=== PATIENT | female | born 1960 | race American Indian/Alaskan Native ===

== ENCOUNTER 2018-06-26 12:08 | Inpatient (IN) | payer SELFPAY ==
--- NOTE | 2018-06-26 13:30 | Emergency Department Report ---
ED General Adult HPI - General Chief complaint: Weakness Stated complaint: WEAKNESS/DEHYRDATION Time Seen by Provider: 06/26/18 12:48 Source: patient, EMS (ems notes not available at time of chart dictation), RN notes reviewed Limitations: Physical Limitation, Other (patient is a poor historian.) - History of Present Illness Initial comments: This is a 58-year-old female who is not known to this provider previously. Her past medical history includes stroke, residual dysarthria. Patient may also be undomiciled. The patient was brought to the hospital by EMS. As per verbal report from the patient's nurse, the patient was found on somebody's front porch sitting down. Apparently the resident of the porch called 911. Patient indicated that she was walking home but got lost. She indicates that she feels globally weak. She indicates that she thinks that she is going to have another stroke. She feels like this because she has chronic lower extremity weakness and global weakness. However it is not new, worsened or different. She reports that she's been doing a lot of walking recently. -: This afternoon Consistency: constant Improves with: none Worsens with: none Associated Symptoms: confusion, headaches, loss of appetite, malaise, weakness. denies: chest pain, cough, diaphoresis, fever/chills - Related Data Previous Rx's Medication Instructions Recorded Last Taken Type Amlodipine Besylate [Norvasc] 5 mg PO QDAY #30 tablet 06/26/18 Unknown Rx Aspirin [Aspirin BABY CHEW TAB] 81 mg PO QDAY #30 tab.chew 06/26/18 Unknown Rx Magnesium Oxide [Mag-Ox] 400 mg PO QDAY #15 tablet 06/26/18 Unknown Rx Allergies Allergy/AdvReac Type Severity Reaction Status Date / Time No Known Allergies Allergy Verified 06/26/18 13:38 ED Review of Systems ROS: Stated complaint: WEAKNESS/DEHYRDATION Other details as noted in HPI Constitutional: malaise Eyes: denies: eye discharge ENT: denies: epistaxis Respiratory: cough Cardiovascular: denies: chest pain Gastrointestinal: denies: vomiting Genitourinary: denies: dysuria Musculoskeletal: arthralgia Skin: denies: lesions Neurological: weakness Psychiatric: anxiety ED Past Medical Hx - Medications Home Medications: Home Medications Medication Instructions Recorded Confirmed Last Taken Type Amlodipine Besylate [Norvasc] 5 mg PO QDAY #30 tablet 06/26/18 Unknown Rx Aspirin [Aspirin BABY CHEW TAB] 81 mg PO QDAY #30 tab.chew 06/26/18 Unknown Rx Magnesium Oxide [Mag-Ox] 400 mg PO QDAY #15 tablet 06/26/18 Unknown Rx ED Physical Exam - General Limitations: Other (patient is chronically dysarthric) General appearance: alert, in no apparent distress - Head Head exam: Present: atraumatic, normocephalic - Eye Eye exam: Present: normal appearance, EOMI - ENT ENT exam: Present: mucous membranes moist. Absent: normal exam (poor dentition) - Neck Neck exam: Present: normal inspection, full ROM. Absent: tenderness, meningismus - Respiratory Respiratory exam: Present: normal lung sounds bilaterally. Absent: respiratory distress - Cardiovascular Cardiovascular Exam: Present: regular rate, normal rhythm, normal heart sounds. Absent: bradycardia, tachycardia, irregular rhythm, systolic murmur, diastolic murmur, rubs, gallop - GI/Abdominal GI/Abdominal exam: Present: soft, normal bowel sounds. Absent: distended, tenderness, guarding, rebound, rigid, pulsatile mass - Extremities Exam Extremities exam: Present: normal inspection, full ROM, normal capillary refill , other (2+ pulses noted in the bilateral upper, lower extremities. Compartments soft. No long bony tenderness. The pelvis is stable.). Absent: pedal edema, joint swelling, calf tenderness - Back Exam Back exam: Present: normal inspection, full ROM. Absent: tenderness, CVA tenderness (R), paraspinal tenderness, vertebral tenderness - Neurological Exam Neurological exam: Present: alert, oriented X3, normal gait (patient walks with a broad-based gait and 1 person assist), other (Extraocular movements intact. Tongue midline. No facial droop. Facial sensation intact to light touch in the V1, V2, V3 distribution bilaterally. 5 and 5 strength in 4 extremities.. Sensation is intact to light touch in 4 extremities.). Absent: motor sensory deficit - Psychiatric Psychiatric exam: Present: anxious - Skin Skin exam: Present: warm, dry, intact, normal color. Absent: rash ED Course Vital Signs 06/26/18 06/26/18 06/26/18 12:10 13:38 15:15 Temperature 98.4 F Pulse Rate 72 75 70 Respiratory 18 18 18 Rate Blood Pressure 197/94 Blood Pressure 183/82 185/98 [Left] O2 Sat by Pulse 99 99 99 Oximetry 06/26/18 06/26/18 06/26/18 17:00 18:30 19:30 Temperature 98.2 F 97.8 F 97.8 F Pulse Rate 66 74 88 Respiratory 20 16 18 Rate Blood Pressure Blood Pressure 179/94 169/88 168/82 [Left] O2 Sat by Pulse 99 99 99 Oximetry 06/26/18 06/27/18 06/27/18 22:30 00:16 01:01 Temperature Pulse Rate Respiratory Rate Blood Pressure 188/96 185/88 Blood Pressure [Left] O2 Sat by Pulse 98 99 100 Oximetry 06/27/18 06/27/18 06/27/18 01:46 02:00 02:16 Temperature Pulse Rate Respiratory Rate Blood Pressure 165/103 165/103 158/87 Blood Pressure [Left] O2 Sat by Pulse 100 100 99 Oximetry 06/27/18 06/27/18 06/27/18 02:43 02:45 03:00 Temperature Pulse Rate Respiratory Rate Blood Pressure 165/103 193/100 Blood Pressure [Left] O2 Sat by Pulse 99 99 99 Oximetry 06/27/18 06/27/18 06/27/18 03:15 03:31 03:45 Temperature Pulse Rate Respiratory Rate Blood Pressure 193/100 195/92 195/92 Blood Pressure [Left] O2 Sat by Pulse 99 98 99 Oximetry 06/27/18 06/27/18 06/27/18 04:01 04:15 04:31 Temperature Pulse Rate Respiratory Rate Blood Pressure 193/100 188/100 188/100 Blood Pressure [Left] O2 Sat by Pulse 97 97 100 Oximetry 06/27/18 06/27/18 06/27/18 04:45 05:01 05:15 Temperature Pulse Rate Respiratory Rate Blood Pressure 188/100 185/99 185/99 Blood Pressure [Left] O2 Sat by Pulse 99 97 99 Oximetry 06/27/18 06/27/18 06/27/18 05:31 05:42 05:45 Temperature Pulse Rate 75 Respiratory Rate Blood Pressure 185/99 185/99 188/100 Blood Pressure [Left] O2 Sat by Pulse 99 100 Oximetry 06/27/18 06/27/18 06/27/18 06:01 06:15 07:01 Temperature Pulse Rate Respiratory Rate Blood Pressure 188/100 188/100 117/74 Blood Pressure [Left] O2 Sat by Pulse 100 99 98 Oximetry 06/27/18 10:40 Temperature Pulse Rate 55 L Respiratory Rate Blood Pressure 117/74 Blood Pressure [Left] O2 Sat by Pulse Oximetry - Reevaluation(s) Reevaluation #1: 06/26/18 14:14 Differential diagnosis, including but not limited to: Homelessness, dehydration , urinary tract infection, electrolyte derangement Assessment and plan: 58-year-old female who was brought to the hospital by EMS after the flatbed owner operator of the house where she was squatting/sitting presumably called 911. The patient is a very poor historian. The patient arrived with multiple bags of belongings, multiple layered T-shirts and was covered in feces. She is most likely undomiciled. Based on her history and physical, she does not endorse an acute complaint that seems to be consistent with an acute medical emergency. Noncontrast CT scan of the brain shows chronic findings. Laboratory studies, urinalysis, EKG pending. Case management consult has been obtained to assist with placement. Reevaluation #2: 06/26/18 15:28 The patient ate a full meal tray without difficulty. The patient was evaluated by case management/elementary school social worker. They have given the patient outpatient information for local prison services, the patient will be provided with transportation to the local shelters. The patient's elevated blood pressure is appreciated. Please reference the [employer] clinical policy on hypertension that is not symptomatic. There does not appear to be an acute medical emergency at this time which requires inpatient hospitalization. Reevaluation #3: 06/26/18 15:36 Blood pressure is in the 180s. The patient states she has no urinary symptoms. The patient will be discharged to follow-up. Reevaluation #4: 06/27/18 15:12 The patient has been in the ER for almost 24 hours. She has not been able to receive placement secondary to her chronic unsteady gait. The case has been discussed with the director of hospital medicine, Dr. Josh Berry, who has authorized the patient to be admitted for placement and safe disposition. The case was presented to the Hospital physician, Dr. Josh Johansen, who has graciously accepted the patient to his medical service. ED Medical Decision Making - Lab Data Result diagrams: 06/26/18 13:51 06/26/18 13:51 Vital Signs 06/26/18 12:10 Temperature 98.4 F Pulse Rate 72 Respiratory 18 Rate Blood Pressure 197/94 O2 Sat by Pulse 99 Oximetry Lab Results 06/26/18 Range/Units 13:51 [place] % (Auto) 7.4 H (0.0-7.3) % Eos % (Auto) 0.1 (0.0-4.3) % [place] # 0.4 (0.0-0.8) K/mm3 Eos # 0.0 (0.0-0.4) K/mm3 Baso # 0.0 (0.0-0.1) K/mm3 Seg Neutrophils % 63.8 (40.0-70.0) % Seg Neutrophils # 3.4 (1.8-7.7) K/mm3 - EKG Data -: EKG Interpreted by [facility] EKG shows normal: sinus rhythm - EKG Data When compared to previous EKG there are: previous EKG unavailable 06/26/18 15:09 Normal sinus, 70 bpm, normal axis, QTC prolonged, T-wave inversion V4, left ventricular hypertrophy. Not a STEMI. - Radiology Data Radiology results: report reviewed Referring Physician: ROSE NUNO Patient Name: RAISSA SUH Date of : 1960 Sex: Female Report Date: 2018-06-26 Report Status: Finalized Findings [facility] [address] [place] [address] Cat Scan Report Signed Patient: RAISSA SUH MR#: [id number] : 1960 Acct:[id number] Age/Sex: 58 / F ADM Date: 06/26/18 Loc: ED Attending Dr: Ordering Physician: ROSE NUNO MD Date of Service: 06/26/18 Procedure(s): CT head/brain wo con Accession Number(s): [id number] cc: ROSE NUNO MD CT HEAD WITHOUT CONTRAST: HISTORY: Stroke symptoms. TECHNIQUE: Sequential 2.5mm CT images. COMPARISON: none. FINDINGS: No comparison. Right frontotemporal craniotomy changes are identified, correlate with surgical history. There are moderate to large areas of cortical encephalomalacia in the medial right frontal lobe, left frontal lobe and anterior left temporal lobe. This may be secondary to trauma. Minimal nonspecific chronic white matter changes are identified. Chronic subcentimeter infarcts are identified in the right king radiata and bilateral basal ganglia. There is no evidence for hemorrhage, mass or large area of acute ischemia on noncontrast CT. Ventricular size is within normal limits. The calvarium, sinuses and mastoid air cells are unremarkable. IMPRESSION: No acute intracranial process is identified. Chronic findings outlined above. Transcribed By: TTR Dictated By: GREG MAGANA JR, MD Electronically Authenticated By: GREG MAGANA JR, MD Signed Date/Time: 06/26/18 1400 Critical care attestation.: If time is entered above; I have spent that time in minutes in the direct care of this critically ill patient, excluding procedure time. ED Disposition Clinical Impression: Elevated blood pressure reading, Renal insufficiency Disposition: OP ADMIT IP TO THIS HOSP Is pt being admited?: Yes Does the pt Need Aspirin: Yes Condition: Stable Instructions: Hypertension (ED) Additional Instructions: Take the medications as directed. Please note that laboratory studies indicated renal insufficiency and elevated blood pressure. Patient's potassium was also lower than expected. Take the medications as directed, and follow-up with the primary care doctor or kidney doctor within the next month. Long-term complications of hypertension and elevated blood pressure includes stroke, heart attack, disability, paralysis, loss of quality of life. Return to the ER right away with new pain, worsened pain, migration of pain, fevers, chills, lethargy, irritability, productive vomiting, change in mental status, confusion , inability to tolerate liquid feeds. Prescriptions: Amlodipine Besylate [Norvasc] 5 mg PO QDAY #30 tablet Aspirin [Aspirin BABY CHEW TAB] 81 mg PO QDAY #30 tab.chew Magnesium Oxide [Mag-Ox] 400 mg PO QDAY #15 tablet Referrals: [facility] [Provider Group] - 3-5 Days CHARLI MYLES MD [Staff Physician] - 3-5 Days
--- NOTE | 2018-06-26 14:06 | Cat Scan Report ---
CT HEAD WITHOUT CONTRAST: HISTORY: Stroke symptoms. TECHNIQUE: Sequential 2.5mm CT images. COMPARISON: none. FINDINGS: No comparison. Right frontotemporal craniotomy changes are identified, correlate with surgical history. There are moderate to large areas of cortical encephalomalacia in the medial right frontal lobe, left frontal lobe and anterior left temporal lobe. This may be secondary to trauma. Minimal nonspecific chronic white matter changes are identified. Chronic subcentimeter infarcts are identified in the right king radiata and bilateral basal ganglia. There is no evidence for hemorrhage, mass or large area of acute ischemia on noncontrast CT. Ventricular size is within normal limits. The calvarium, sinuses and mastoid air cells are unremarkable. IMPRESSION: No acute intracranial process is identified. Chronic findings outlined above.
[2018-06-26 14:14] LABS: Basophils % (Auto) 0.3 % (0.0-1.8); Eosinophils % (Auto) 0.1 % (0.0-4.3); Hematocrit 38.6 % (30.3-42.9); Hemoglobin 12.9 gm/dl (10.1-14.3); Lymphocytes # (Auto) 1.5 K/mm3 (1.2-5.4); Lymphocytes % (Auto) 28.4 % (13.4-35.0); Mean Corpuscular HGB Conc 33 % (30-34); Mean Corpuscular Hemoglobin 30 pg (28-32); Mean Corpuscular Volume 88 fl (79-97); Monocytes # (Auto) 0.4 K/mm3 (0.0-0.8); Monocytes % (Auto) 7.4 % (0.0-7.3); Platelet Count 146 K/mm3 (140-440); Red Blood Count 4.37 M/mm3 (3.65-5.03); Red Cell Distribution Width 14.4 % (13.2-15.2)
[2018-06-26] MEDS ORDERED: ZOFRAN ODT PO PRN (14:16)
[2018-06-26] MEDS ORDERED: TYLENOL PO PRN (14:16)
[2018-06-26 14:23] LABS: INR 0.88 (0.87-1.13)
[2018-06-26 14:24] LABS: Partial Thromboplastin Time 27.7 Sec. (24.2-36.6)
[2018-06-26 14:26] LABS: Creatine Kinase MB 1.5 ng/mL (0.0-4.0)
[2018-06-26 14:27] LABS: Alanine Aminotransferase 7 units/L (7-56); Albumin 3.9 g/dL (3.9-5); BUN/Creatinine Ratio 14; Blood Urea Nitrogen 20 mg/dL (7-17); Calcium 9.2 mg/dL (8.4-10.2); Hemolysis Index 25
[2018-06-26] MEDS ORDERED: MAG-OX PO STA (14:56)
[2018-06-26] MEDS: NORVASC PO SCH (15:50)
[2018-06-27] MEDS ORDERED: CATAPRES PO ONE (05:35)
[2018-06-27] MEDS: NORVASC PO SCH (10:40)
[2018-06-27] MEDS ORDERED: BABY ASPIRIN PO ONE (15:13)
--- NOTE | 2018-06-27 18:10 | History and Physical Report ---
History of Present Illness Date of examination: 06/27/18 Date of admission: 06/27/18 Chief complaint: CC Unable to walk and ataxic History of present illness: History of Present Illness: 58-year-old female with history of previous stroke and dysarthria with unsteady gait brought to the hospital by EMS. Patient was apparently found on somebody' s front porch and sitting posture--disheveled and covered with feces. Patient was apparently walking home and got lost. Feels very weak and unable to walk. Patient has chronic lower extremity weakness and has difficulty walking. No recent changes in her weakness. Patient has chronic problems with strength in the lower extremities. Patient is also homeless and wants help. Discussed with and accepted the patient for admission and placement. No new weaknesses. No nasal regurgitation of fluids or diplopia or urinary incontinence. No shortness of breath. Past Medical Hx Htn Cva Surgical Hx N/A Family Hx Htn Social History Smokes PPD Medications Home Medications: Home Medications Medication Instructions Recorded Confirmed Last Taken Type Amlodipine Besylate [Norvasc] 5 mg PO QDAY #30 tablet 06/26/18 Unknown Rx Aspirin [Aspirin BABY CHEW TAB] 81 mg PO QDAY #30 tab.chew 06/26/18 Unknown Rx Magnesium Oxide [Mag-Ox] 400 mg PO QDAY #15 tablet 06/26/18 Unknown Rx Review of systems ROS: Stated complaint: WEAKNESS/DEHYRDATION Other details as noted in HPI Constitutional: malaise Eyes: denies: eye discharge ENT: denies: epistaxis Respiratory: cough Cardiovascular: denies: chest pain Gastrointestinal: denies: vomiting Genitourinary: denies: dysuria Musculoskeletal: arthralgia Skin: denies: lesions Neurological: weakness Psychiatric: anxiety Medications and Allergies Allergies Allergy/AdvReac Type Severity Reaction Status Date / Time No Known Allergies Allergy Verified 06/26/18 13:38 Home Medications Medication Instructions Recorded Confirmed Last Taken Type Amlodipine Besylate [Norvasc] 5 mg PO QDAY #30 tablet 06/26/18 Unknown Rx Aspirin [Aspirin BABY CHEW TAB] 81 mg PO QDAY #30 tab.chew 06/26/18 Unknown Rx Magnesium Oxide [Mag-Ox] 400 mg PO QDAY #15 tablet 06/26/18 Unknown Rx Active Meds: Active Medications Acetaminophen (Tylenol) 500 mg PO Q6HR PRN PRN Reason: Pain Last Admin: 06/26/18 15:50 Dose: 500 mg Amlodipine Besylate (Norvasc) 5 mg PO QDAY RACHEL Last Admin: 06/27/18 10:40 Dose: 5 mg Ondansetron HCl (Zofran Odt) 4 mg PO Q6HR PRN PRN Reason: Nausea Exam - Constitutional Vitals: Temp Pulse Resp BP Pulse Ox 97.8 F 80 18 124/76 98 06/26/18 19:30 06/27/18 17:00 06/26/18 19:30 06/27/18 17:00 06/27/18 07:01 General appearance: Present: no acute distress, well-nourished - EENT Eyes: Present: PERRL ENT: hearing intact, clear oral mucosa - Neck Neck: Present: supple, normal ROM - Respiratory Respiratory effort: normal Respiratory: bilateral: CTA - Cardiovascular Heart rate: 80 Rhythm: regular Heart Sounds: Present: S1 & S2. Absent: rub, click - Extremities Extremities: no ischemia, pulses intact, pulses symmetrical, No edema Peripheral Pulses: within normal limits - Abdominal General gastrointestinal: Present: soft, non-tender, non-distended, normal bowel sounds Female genitourinary: Present: normal - Rectal Rectal Exam: deferred - Integumentary Integumentary: Present: clear, warm, dry - Musculoskeletal Musculoskeletal: generalized weakness, other (Ataxic Gait) - Psychiatric Psychiatric: appropriate mood/affect, intact judgment & insight, depressed - Neurologic Neurologic: CNII-XII intact, moves all extremities (Powern 4/5 in both lower extremities) Results - Labs CBC & Chem 7: 06/26/18 13:51 06/26/18 13:51 Labs: Laboratory Last Values WBC 5.3 K/mm3 (4.5-11.0) 06/26/18 13:51 RBC 4.37 M/mm3 (3.65-5.03) 06/26/18 13:51 Hgb 12.9 gm/dl (10.1-14.3) 06/26/18 13:51 Hct 38.6 % (30.3-42.9) 06/26/18 13:51 MCV 88 fl (79-97) 06/26/18 13:51 MCH 30 pg (28-32) 06/26/18 13:51 MCHC 33 % (30-34) 06/26/18 13:51 RDW 14.4 % (13.2-15.2) 06/26/18 13:51 Plt Count 146 K/mm3 (140-440) 06/26/18 13:51 Lymph % (Auto) 28.4 % (13.4-35.0) 06/26/18 13:51 [place] % (Auto) 7.4 % (0.0-7.3) H 06/26/18 13:51 Eos % (Auto) 0.1 % (0.0-4.3) 06/26/18 13:51 Baso % (Auto) 0.3 % (0.0-1.8) 06/26/18 13:51 Lymph # 1.5 K/mm3 (1.2-5.4) 06/26/18 13:51 [place] # 0.4 K/mm3 (0.0-0.8) 06/26/18 13:51 Eos # 0.0 K/mm3 (0.0-0.4) 06/26/18 13:51 Baso # 0.0 K/mm3 (0.0-0.1) 06/26/18 13:51 Seg Neutrophils % 63.8 % (40.0-70.0) 06/26/18 13:51 Seg Neutrophils # 3.4 K/mm3 (1.8-7.7) 06/26/18 13:51 PT 12.4 Sec. (12.2-14.9) 06/26/18 13:51 INR 0.88 (0.87-1.13) 06/26/18 13:51 APTT 27.7 Sec. (24.2-36.6) 06/26/18 13:51 Thrombin Time 15.0 Sec. (15.1-19.6) L 06/26/18 13:51 Sodium 140 mmol/L (137-145) 06/26/18 13:51 Potassium 3.9 mmol/L (3.6-5.0) 06/26/18 13:51 Chloride 102.3 mmol/L (98-107) 06/26/18 13:51 Carbon Dioxide 22 mmol/L (22-30) 06/26/18 13:51 Anion Gap 20 mmol/L 06/26/18 13:51 BUN 20 mg/dL (7-17) H 06/26/18 13:51 Creatinine 1.4 mg/dL (0.7-1.2) H 06/26/18 13:51 Estimated GFR 39 ml/min 06/26/18 13:51 BUN/Creatinine Ratio 14 % 06/26/18 13:51 Glucose 101 mg/dL (65-100) H 06/26/18 13:51 POC Glucose 94 (70-105) 06/27/18 03:27 Calcium 9.2 mg/dL (8.4-10.2) 06/26/18 13:51 Magnesium 1.60 mg/dL (1.7-2.3) L 06/26/18 13:51 Total Bilirubin 0.40 mg/dL (0.1-1.2) 06/26/18 13:51 AST 14 units/L (5-40) 06/26/18 13:51 ALT 7 units/L (7-56) 06/26/18 13:51 Alkaline Phosphatase 79 units/L (35-129) 06/26/18 13:51 Total Creatine Kinase 124 units/L (30-135) 06/26/18 13:51 CK-MB (CK-2) 1.5 ng/mL (0.0-4.0) 06/26/18 13:51 CK-MB (CK-2) Rel Index 1.2 (0-4) 06/26/18 13:51 Troponin T < 0.010 ng/mL (0.00-0.029) 06/26/18 13:51 Total Protein 7.4 g/dL (6.3-8.2) 06/26/18 13:51 Albumin 3.9 g/dL (3.9-5) 06/26/18 13:51 Albumin/Globulin Ratio 1.1 % 06/26/18 13:51 TSH 1.980 mlU/mL (0.270-4.200) 06/26/18 13:51 Salicylates < 0.3 mg/dL (2.8-20.0) L 06/26/18 13:51 Acetaminophen < 5.0 ug/mL (10.0-30.0) L 06/26/18 13:51 Plasma/Serum Alcohol < 0.01 % (0-0.07) 06/26/18 13:51 - Imaging and Cardiology Imaging and Cardiology: CT Head IMPRESSION: No acute intracranial process is identified. Chronic findings outlined above. Assessment and Plan Advance Directives: Yes (Full code) VTE prophylaxis?: Chemical Plan of care discussed with patient/family: Yes - Patient Problems (1) MORRO (acute kidney injury) Current Visit: Yes Status: Acute Plan to address problem: IV Fluids (2) Ataxia Current Visit: Yes Status: Chronic Plan to address problem: MRI/MRA MRI LS Spine PT consult Neuro consult Placement (3) HTN (hypertension) Current Visit: Yes Status: Chronic Qualifiers: Hypertension type: essential hypertension Qualified Code(s): I10 - Essential (primary) hypertension Plan to address problem: Cont Antihypertensives (4) Hypomagnesemia Current Visit: Yes Status: Acute Plan to address problem: IV Magnesium (5) DVT prophylaxis Current Visit: Yes Status: Acute Plan to address problem: On Lovenox
[2018-06-27] MEDS ORDERED: TYLENOL PO PRN (18:12)
[2018-06-27] MEDS ORDERED: ZOFRAN IV PRN (18:12)
[2018-06-27] MEDS ORDERED: SODIUM CHLORIDE FLUSH SYRINGE 10 ML IV PRN (18:12)
[2018-06-27] MEDS ORDERED: MORPHINE IV PRN (18:12)
[2018-06-27] MEDS ORDERED: BABY ASPIRIN ONE (19:26)
[2018-06-27] MEDS: D5NS 1,000 ML IV SCH (23:36)
[2018-06-27] MEDS: SODIUM CHLORIDE FLUSH SYRINGE 10 ML IV SCH (23:38)
[2018-06-28 07:57] LABS: Basophils % (Auto) 0.4 % (0.0-1.8); Eosinophils % (Auto) 0.1 % (0.0-4.3); Hemoglobin 12.3 gm/dl (10.1-14.3); Lymphocytes # (Auto) 1.3 K/mm3 (1.2-5.4); Lymphocytes % (Auto) 41.1 % (13.4-35.0); Mean Corpuscular HGB Conc 33 % (30-34); Mean Corpuscular Hemoglobin 30 pg (28-32); Mean Corpuscular Volume 89 fl (79-97); Monocytes # (Auto) 0.3 K/mm3 (0.0-0.8); Monocytes % (Auto) 10.8 % (0.0-7.3); Platelet Count 154 K/mm3 (140-440); Red Blood Count 4.17 M/mm3 (3.65-5.03); Red Cell Distribution Width 14.5 % (13.2-15.2)
[2018-06-28 08:18] LABS: Albumin 3.4 g/dL (3.9-5); Calcium 8.3 mg/dL (8.4-10.2)
[2018-06-28] MEDS: D5NS 1,000 ML IV SCH (09:58)
[2018-06-28] MEDS: NORVASC PO SCH (10:04)
[2018-06-28] MEDS: LOVENOX SUB-Q SCH (10:05)
[2018-06-28] MEDS ORDERED: D5/0.45NS 1,000 ML IV SCH (11:00)
--- NOTE | 2018-06-28 14:27 | Progress Note ---
Assessment and Plan / Acute/subacute Embolic strokes cont aspirin, statin cont stroke protocol neurology following ordered 2d echo, fasting lipid /History of seizures ordered EEG for tomorrow started phenytoin 200 mg twice a day and order a level for phenytoin and phenobarbital. /MORRO (acute kidney injury) continue IV Fluids / Ataxia Ordered MRI LS Spine PT consult /HTN (hypertension) Cont Antihypertensives / Hypomagnesemia Given IV Magnesium /DVT prophylaxis On Lovenox Radiological data: MRI brain: Right craniotomy changes which demonstrate mild artifact, correlate with history. 3 small foci of subacute ischemia identified. This could indicate an embolic process, correlate with the patient's clinical presentation. Chronic cortical encephalomalacia in the frontal lobes and left temporal lobe as described. Chronic white matter changes. Chronic focal infarcts in the king radiata bilaterally. Subjective Date of service: 06/28/18 Interval history: Pt seen and examined States she was taking seizure medications at home Denies chest pain or SOB Objective - Exam Narrative Exam: General appearance: Present: no acute distress, well-nourished - EENT Eyes: Present: PERRL ENT: hearing intact, clear oral mucosa - Neck Neck: Present: supple, normal ROM - Respiratory Respiratory effort: normal Respiratory: bilateral: CTA - Cardiovascular Heart rate: 80 Rhythm: regular Heart Sounds: Present: S1 & S2. Absent: rub, click - Extremities Extremities: no ischemia, pulses intact, pulses symmetrical, No edema Peripheral Pulses: within normal limits - Abdominal General gastrointestinal: Present: soft, non-tender, non-distended, normal bowel sounds Female genitourinary: Present: normal - Rectal Rectal Exam: deferred - Integumentary Integumentary: Present: clear, warm, dry - Musculoskeletal Musculoskeletal: generalized weakness, other (Ataxic Gait) - Psychiatric Psychiatric: appears anxious - Neurologic Neurologic: CNII-XII intact, moves all extremities (Power 4/5 in both lower extremities) - Constitutional Vitals: Vital Signs - 12hr 06/28/18 06/28/18 06/28/18 03:06 05:39 08:25 Temperature 97.6 F Pulse Rate 71 Respiratory 16 18 Rate Blood Pressure 142/87 O2 Sat by Pulse 99 100 Oximetry 06/28/18 06/28/18 06/28/18 09:56 10:04 12:12 Temperature 97.8 F Pulse Rate Respiratory 19 Rate Blood Pressure 170/105 170/105 147/97 O2 Sat by Pulse Oximetry - Labs CBC & Chem 7: 06/28/18 06:58 06/28/18 06:58 Labs: Abnormal lab results 06/27/18 06/28/18 06/28/18 Range/Units 23:53 06:58 06:58 WBC 3.2 L (4.5-11.0) K/mm3 Lymph % (Auto) 41.1 H (13.4-35.0) % [place] % (Auto) 10.8 H (0.0-7.3) % Seg Neutrophils # 1.5 L (1.8-7.7) K/mm3 Chloride 109.5 H (98-107) mmol/L BUN 23 H (7-17) mg/dL Creatinine 1.4 H (0.7-1.2) mg/dL POC Glucose 118 H (70-105) Calcium 8.3 L (8.4-10.2) mg/dL ALT 6 L (7-56) units/L Albumin 3.4 L (3.9-5) g/dL
--- NOTE | 2018-06-28 14:55 | Magnetic Resonance Report ---
MRI OF THE BRAIN WITHOUT CONTRAST: HISTORY: Ataxia PROCEDURE: Multiplanar, multisequence MR imaging of the brain without IV contrast was performed. FINDINGS: There is mild artifact from hardware involving a right craniotomy. Correlate with history. Compared to the CT head dated 06/26/18. MRI demonstrates 3 small foci of diffusion restriction consistent with subacute ischemia. A 5 mm focus of diffusion restriction is identified in the left christopher on diffusion image 14. A 5 mm focus of diffusion restriction is identified in the splenium of the corpus callosum to the left of midline on image 19. A 5 mm focus of diffusion restriction is identified in the left frontal white matter on image 23. There is no evidence for hemorrhage, mass effect or extra-axial fluid collection. Chronic cortical encephalomalacia is identified in the medial right frontal lobe, anterior left frontal lobe and anterior left temporal lobe which could be secondary to trauma, correlate with history. There are moderate nonspecific chronic white matter changes. Multiple chronic focal infarcts are identified in the bilateral king radiata. The midline structures are central. The basal cisterns are patent. Normal ventricular size. The orbital cavities and sella turcica demonstrate no abnormality. The visualized paranasal sinuses and mastoid air cells are well aerated. IMPRESSION: Right craniotomy changes which demonstrate mild artifact, correlate with history. 3 small foci of subacute ischemia are identified as outlined above. This could indicate an embolic process, correlate with the patient's clinical presentation. Chronic cortical encephalomalacia in the frontal lobes and left temporal lobe as described. Chronic white matter changes. Chronic focal infarcts in the king radiata bilaterally.
--- NOTE | 2018-06-28 14:56 | Magnetic Resonance Report ---
MRA HEAD WITHOUT CONTRAST HISTORY: Ataxia. [id number] imaging with MIP reformations of the yocha dehe of [place] is submitted. The images are slightly limited secondary to motion. The arteries appear widely patent and free of hemodynamically significant stenosis, aneurysm or dissection. IMPRESSION: Slightly limited exam secondary to motion. No large vessel occlusion is identified.
[2018-06-28] MEDS: BABY ASPIRIN PO SCH ×2 (15:50→18:42)
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
[2018-06-28] MEDS ORDERED: DILANTIN PO SCH ×2 (18:00→22:00)
[2018-06-28] MEDS: DILANTIN PO SCH ×2 (18:47→21:41)
[2018-06-28] MEDS: SODIUM CHLORIDE FLUSH SYRINGE 10 ML IV SCH ×2 (18:48→21:44)
--- NOTE | 2018-06-28 18:50 | Magnetic Resonance Report ---
FINAL REPORT PROCEDURE: MR LUMBAR SPINE WO CON TECHNIQUE: Magnetic resonance imaging of the lumbar spine was performed using standard pulse sequences without contrast material. CPT 66419 HISTORY: ataxia COMPARISON: No prior studies are available for comparison. FINDINGS: The signal intensity and height of the vertebral bodies appears normal with the exception of mild Modic type 2 degenerative endplate changes at the L3 level. No compression deformities are visualized. Conus appears normal. No masses are visualized. The cord appropriately terminates the L2 level. L1-2: Degenerative signal is seen in the disc the height of the disc is minimally decreased. Minimal disc bulge present without focal disc herniation or spinal stenosis. The disc projects into the neural foramina bilaterally however the foramina appear adequate.. L2-3: Degenerative signal is seen in the disc the height of the disc is minimally decreased. Minimal disc bulge present without focal disc herniation or spinal stenosis. The disc projects into the neural foramina bilaterally, however the foramina appear adequate.. L3-4: Degenerative signal is seen in the disc. No focal disc herniation or spinal stenosis visualized. The neural foramina appear adequate.. L4-5: Degenerative signal is seen in the disc. There is no focal disc herniation or spinal stenosis. Minimal disc bulge present. This projects into the neural foramina however the foramina still appear adequate. Mild facet arthritis visualized on the right, mild to moderate changes seen on the left. L5-S1: Moderate facet arthritis visualized bilaterally. Asymmetric disc protrusion or small disc herniation seen to the left of midline which appears to be minimally displacing the left S1 nerve root slightly posteriorly. No spinal stenosis visualized. The neural foramina bilaterally are narrowed secondary to ligamentum flavum laxity although appear to be adequate.. Other: None . IMPRESSION: Asymmetric disc protrusion or small disc herniation seen to the left of midline L5-S1 level which appears to be mildly displacing the left S1 nerve root. No spinal stenosis is visualized. Degenerative disc disease with mild disc bulges and facet arthritis present throughout the remainder of the lumbar spine as described above.
[2018-06-28] MEDS ORDERED: PRAVACHOL PO SCH (22:00)
[2018-06-28] MEDS ORDERED: MAGNESIUM SULFATE 2GM/50ML 2 GM/50 ML BAG IV ONE (22:47)
[2018-06-29] MEDS ORDERED: PRAVACHOL PO SCH
[2018-06-29] MEDS: APRESOLINE IV PRN ×2 (07:09→12:38)
[2018-06-29 08:08] LABS: Chol/HDL Ratio 2.96 %
[2018-06-29] MEDS: NORVASC PO SCH ×2 (10:10→16:47)
[2018-06-29] MEDS: DILANTIN PO SCH ×2 (10:10→22:05)
[2018-06-29] MEDS: BABY ASPIRIN PO SCH (10:11)
[2018-06-29] MEDS: LOVENOX SUB-Q SCH (10:11)
[2018-06-29] MEDS: SODIUM CHLORIDE FLUSH SYRINGE 10 ML IV SCH ×2 (10:12→22:10)
[2018-06-29] MEDS ORDERED: [UNRECOGNIZED DRUG - OTHER] IV ONE (11:12)
[2018-06-29] MEDS ORDERED: NACL IV ONE (11:12)
[2018-06-29] MEDS ORDERED: CEREBYX IV ONE (11:12)
[2018-06-29] MEDS ORDERED: NORVASC PO SCH (13:10)
[2018-06-29] MEDS: COREG PO SCH ×2 (16:48→22:07)
--- NOTE | 2018-06-29 17:20 | Progress Note ---
Assessment and Plan / Acute/subacute Embolic strokes cont aspirin, statin cont stroke protocol neurology following preserved EF on 2d echo, fasting lipid /History of seizures s/p EEG, will follow result started phenytoin 200 mg twice a day and ordered a level for phenytoin and phenobarbital. /MORRO (acute kidney injury) continue IV Fluids / Ataxia MRI LS Spine disc herniation at L5/S1 level PT consult /HTN (hypertension) Cont Antihypertensives / Hypomagnesemia Given IV Magnesium /DVT prophylaxis On Lovenox Radiological data: MRI brain: Right craniotomy changes which demonstrate mild artifact, correlate with history. 3 small foci of subacute ischemia identified. This could indicate an embolic process, correlate with the patient's clinical presentation. Chronic cortical encephalomalacia in the frontal lobes and left temporal lobe as described. Chronic white matter changes. Chronic focal infarcts in the king radiata bilaterally. Subjective Date of service: 06/29/18 Interval history: Pt seen and examined Denies chest pain or SOB Had EEG today Objective - Exam Narrative Exam: General appearance: Present: no acute distress, well-nourished - EENT Eyes: Present: PERRL ENT: hearing intact, clear oral mucosa - Neck Neck: Present: supple, normal ROM - Respiratory Respiratory effort: normal Respiratory: bilateral: CTA - Cardiovascular Heart rate: 80 Rhythm: regular Heart Sounds: Present: S1 & S2. Absent: rub, click - Extremities Extremities: no ischemia, pulses intact, pulses symmetrical, No edema Peripheral Pulses: within normal limits - Abdominal General gastrointestinal: Present: soft, non-tender, non-distended, normal bowel sounds Female genitourinary: Present: normal - Rectal Rectal Exam: deferred - Integumentary Integumentary: Present: clear, warm, dry - Musculoskeletal Musculoskeletal: generalized weakness, other (Ataxic Gait) - Psychiatric Psychiatric: appears anxious - Neurologic Neurologic: CNII-XII intact, moves all extremities (Power 4/5 in both lower extremities) - Constitutional Vitals: Vital Signs - 12hr 06/29/18 06/29/18 06/29/18 05:24 07:09 10:03 Temperature 97.8 F Pulse Rate 60 Respiratory 20 Rate Blood Pressure 182/102 182/102 166/89 O2 Sat by Pulse 99 Oximetry 06/29/18 06/29/18 06/29/18 10:10 11:47 11:49 Temperature 98.1 F Pulse Rate 105 H 81 Respiratory 18 Rate Blood Pressure 166/89 228/158 193/107 O2 Sat by Pulse 95 98 Oximetry 06/29/18 06/29/18 16:47 16:48 Temperature Pulse Rate Respiratory Rate Blood Pressure 193/107 193/107 O2 Sat by Pulse Oximetry - Labs CBC & Chem 7: 06/28/18 06:58 06/28/18 06:58 Labs: Abnormal lab results 06/28/18 Range/Units 21:36 POC Glucose 295 H (70-105)
[2018-06-29] MEDS: PRAVACHOL PO SCH (22:05)
[2018-06-29] MEDS: PERCOCET 5/325 PO PRN (22:06)
--- NOTE | 2018-06-29 23:26 | Electroencephalogram Report ---
Electroencephalogram EEG Date of exam: 06/29/18 Description: Preliminary findings: 8-9 Hz alpha activity in posterior leads, breech rhythm right frontotemporal (higher amplitude due to prior craniotomy), left frontal intermittent slowing, right temporal rare slowing, no epileptiform activity. Interpretation: Preliminary reading: abnormal EEG due to breech rhythm on the right (due to craniotomy) but also slowing rarely right temporal (perhaps from damage from the lesion leading to the craniotomy) and occasional in left frontal region ( site of encephalomalacia on MRI). Does not exclude epilepsy of partial onset.
[2018-06-30] MEDS ORDERED: KIONEX PO ONE (10:00)
[2018-06-30] MEDS: COREG PO SCH ×2 (11:30→22:34)
[2018-06-30] MEDS: NORVASC PO SCH (11:31)
[2018-06-30] MEDS: LOVENOX SUB-Q SCH (11:32)
[2018-06-30] MEDS: SODIUM CHLORIDE FLUSH SYRINGE 10 ML IV SCH ×2 (11:33→22:36)
[2018-06-30] MEDS: DILANTIN PO SCH ×2 (11:44→22:35)
[2018-06-30] MEDS: BABY ASPIRIN PO SCH (11:44)
--- NOTE | 2018-06-30 12:03 | Ultrasound Report ---
ULTRASOUND RENAL INDICATION: CKD. COMPARISON: None similar. FINDINGS: Renal sonography suggests mild to moderately increased renal cortical echogenicity. Grossly preserved contours. No hydronephrosis. RIGHT KIDNEY measures 9.1 x 3.9 x 5 cm with cortical thickness of 1.4 cm. LEFT KIDNEY estimated at 6.5 x 4.6 x 4.9 cm with cortical thickness of 1.1 cm. URINARY BLADDER suboptimally distended and assessed. CONCLUSION: Medical renal disease and asymmetric left renal atrophy noted, as described. Please correlate. Thank you for the opportunity to participate in this patient's care.
[2018-06-30] MEDS: APRESOLINE PO SCH ×2 (13:32→22:35)
--- NOTE | 2018-06-30 14:49 | Progress Note ---
Assessment and Plan / Acute/subacute Embolic strokes cont aspirin, statin cont stroke protocol neurology following preserved EF on 2d echo, fasting lipid /History of seizures abnormal EEG, started phenytoin 200 mg twice a day /MORRO (acute kidney injury) continue IV Fluids, Cr stable /Hyperkalemia, s/p one dose of kayexalate repeat BMP tomorrow / Ataxia MRI LS Spine disc herniation at L5/S1 level PT following /HTN (hypertension) Cont Antihypertensives / Hypomagnesemia Given IV Magnesium /DVT prophylaxis On Lovenox Disposition: homeless, need HH on discharge. PT following, refusing to get discharge. refused PT Radiological data: MRI brain: Right craniotomy changes which demonstrate mild artifact, correlate with history. 3 small foci of subacute ischemia identified. This could indicate an embolic process, correlate with the patient's clinical presentation. Chronic cortical encephalomalacia in the frontal lobes and left temporal lobe as described. Chronic white matter changes. Chronic focal infarcts in the king radiata bilaterally. Subjective Date of service: 06/30/18 Interval history: Pt seen and examined Denies chest pain or SOB refused PT today, c/o nausea Objective - Exam Narrative Exam: General appearance: Present: no acute distress, well-nourished - EENT Eyes: Present: PERRL ENT: hearing intact, clear oral mucosa - Neck Neck: Present: supple, normal ROM - Respiratory Respiratory effort: normal Respiratory: bilateral: CTA - Cardiovascular Heart rate: 80 Rhythm: regular Heart Sounds: Present: S1 & S2. Absent: rub, click - Extremities Extremities: no ischemia, pulses intact, pulses symmetrical, No edema Peripheral Pulses: within normal limits - Abdominal General gastrointestinal: Present: soft, non-tender, non-distended, normal bowel sounds Female genitourinary: Present: normal - Rectal Rectal Exam: deferred - Integumentary Integumentary: Present: clear, warm, dry - Musculoskeletal Musculoskeletal: generalized weakness, other (Ataxic Gait) - Psychiatric Psychiatric: appears anxious - Neurologic Neurologic: CNII-XII intact, moves all extremities (Power 4/5 in both lower extremities) - Constitutional Vitals: Vital Signs - 12hr 06/30/18 06/30/18 06/30/18 05:37 11:30 11:58 Temperature 98.3 F 98.3 F Pulse Rate 69 69 62 Respiratory 18 16 Rate Blood Pressure 169/98 169/98 175/97 O2 Sat by Pulse 100 99 Oximetry - Labs CBC & Chem 7: 06/28/18 06:58 06/30/18 05:38 Labs: Abnormal lab results 06/30/18 Range/Units 05:38 Potassium 5.3 H D (3.6-5.0) mmol/L Carbon Dioxide 20 L (22-30) mmol/L BUN 19 H (7-17) mg/dL Creatinine 1.6 H (0.7-1.2) mg/dL
[2018-06-30] MEDS: NACL 0.9% 1000 ML 1,000 ML IV SCH (19:56)
[2018-06-30] MEDS: PRAVACHOL PO SCH (22:34)
[2018-07-01 09:31] LABS: Calcium 9.3 mg/dL (8.4-10.2)
[2018-07-01] MEDS: COREG PO SCH ×2 (10:20→21:46)
[2018-07-01] MEDS: SODIUM CHLORIDE FLUSH SYRINGE 10 ML IV SCH ×2 (10:21→21:48)
[2018-07-01] MEDS: BABY ASPIRIN PO SCH (10:21)
[2018-07-01] MEDS: DILANTIN PO SCH (10:21)
[2018-07-01] MEDS: NORVASC PO SCH (10:21)
[2018-07-01] MEDS: LOVENOX SUB-Q SCH (10:21)
--- NOTE | 2018-07-01 11:47 | Progress Note ---
Assessment and Plan / Acute/subacute Embolic strokes cont aspirin, statin cont stroke protocol neurology following preserved EF on 2d echo, /History of seizures abnormal EEG, started phenytoin 200 mg twice a day Dilantin Level elevated today, will hold for now /MORRO (acute kidney injury) continue IV Fluids, Cr stable /Hyperkalemia, s/p one dose of kayexalate, resolved / Ataxia, likely from underlying CVA or L5/S level Disc herniation MRI LS Spine disc herniation at L5/S1 level PT following /HTN (hypertension) Cont Antihypertensives / Hypomagnesemia Given IV Magnesium /DVT prophylaxis On Lovenox Disposition: homeless? Unsure about housing and doesn't give any proper history , need HH on discharge. PT following, DC planning once Dilantin level stabilized. Radiological data: MRI brain: Right craniotomy changes which demonstrate mild artifact, correlate with history. 3 small foci of subacute ischemia identified. This could indicate an embolic process, correlate with the patient's clinical presentation. Chronic cortical encephalomalacia in the frontal lobes and left temporal lobe as described. Chronic white matter changes. Chronic focal infarcts in the king radiata bilaterally. Subjective Date of service: 07/01/18 Interval history: Pt seen and examined Denies chest pain or SOB Complains of poor appetite, Hardly gets out of the bed, states that she is feeling very weak Very poor historian when asked about her living situation Objective - Exam Narrative Exam: General appearance: Present: no acute distress, well-nourished - EENT Eyes: Present: PERRL ENT: hearing intact, clear oral mucosa - Neck Neck: Present: supple, normal ROM - Respiratory Respiratory effort: normal Respiratory: bilateral: CTA - Cardiovascular Heart rate: 80 Rhythm: regular Heart Sounds: Present: S1 & S2. Absent: rub, click - Extremities Extremities: no ischemia, pulses intact, pulses symmetrical, No edema Peripheral Pulses: within normal limits - Abdominal General gastrointestinal: Present: soft, non-tender, non-distended, normal bowel sounds Female genitourinary: Present: normal - Rectal Rectal Exam: deferred - Integumentary Integumentary: Present: clear, warm, dry - Musculoskeletal Musculoskeletal: generalized weakness, other (Ataxic Gait) - Psychiatric Psychiatric: appears anxious - Neurologic Neurologic: CNII-XII intact, moves all extremities (Power 4/5 in both lower extremities) - Constitutional Vitals: Vital Signs - 12hr 08/11/18 08/11/18 05:19 10:20 Temperature 98.5 F Pulse Rate 73 73 Respiratory 20 Rate Blood Pressure 175/96 175/96 O2 Sat by Pulse 99 Oximetry - Labs CBC & Chem 7: 06/28/18 06:58 07/01/18 06:58 Labs: Abnormal lab results 07/01/18 07/01/18 Range/Units 06:58 06:58 BUN 21 H (7-17) mg/dL Creatinine 1.6 H (0.7-1.2) mg/dL Phenytoin 31.6 H (10.0-20.0) ug/mL
[2018-07-01] MEDS: APRESOLINE PO SCH ×3 (13:26→21:47)
[2018-07-01] MEDS ORDERED: COUMADIN PO SCH (17:00)
[2018-07-01] MEDS: PRAVACHOL PO SCH (21:46)
[2018-07-01] MEDS: NACL 0.9% 1000 ML 1,000 ML IV SCH (21:46)
[2018-07-02] MEDS: APRESOLINE PO SCH ×3 (06:02→22:47)
[2018-07-02] MEDS: NACL 0.9% 1000 ML 1,000 ML IV SCH (07:04)
[2018-07-02] MEDS: NORVASC PO SCH (11:26)
[2018-07-02] MEDS: LOVENOX SUB-Q SCH ×2 (11:28→11:35)
[2018-07-02] MEDS: BABY ASPIRIN PO SCH (11:28)
[2018-07-02] MEDS: COREG PO SCH ×2 (11:28→22:46)
[2018-07-02] MEDS: SODIUM CHLORIDE FLUSH SYRINGE 10 ML IV SCH ×2 (11:29→22:45)
--- NOTE | 2018-07-02 14:57 | Progress Note ---
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 Unsure about housing and doesn't give any proper history , need HH on discharge. PT following, DC planning once Dilantin level stabilized and improve ambulation. Radiological data: MRI brain: Right craniotomy changes which demonstrate mild artifact, correlate with history. 3 small foci of subacute ischemia identified. This could indicate an embolic process, correlate with the patient's clinical presentation. Chronic cortical encephalomalacia in the frontal lobes and left temporal lobe as described. Chronic white matter changes. Chronic focal infarcts in the king radiata bilaterally. Subjective Date of service: 07/02/18 Interval history: Pt seen and examined Denies chest pain or SOB Hardly gets out of the bed, states that she is still off balance Very poor historian when asked about her living situation and d/c planning refused lab today Objective - Exam Narrative Exam: General appearance: Present: no acute distress, well-nourished - EENT Eyes: Present: PERRL ENT: hearing intact, clear oral mucosa - Neck Neck: Present: supple, normal ROM - Respiratory Respiratory effort: normal Respiratory: bilateral: CTA - Cardiovascular Heart rate: 80 Rhythm: regular Heart Sounds: Present: S1 & S2. Absent: rub, click - Extremities Extremities: no ischemia, pulses intact, pulses symmetrical, No edema Peripheral Pulses: within normal limits - Abdominal General gastrointestinal: Present: soft, non-tender, non-distended, normal bowel sounds Female genitourinary: Present: normal - Rectal Rectal Exam: deferred - Integumentary Integumentary: Present: clear, warm, dry - Musculoskeletal Musculoskeletal: generalized weakness, other (Ataxic Gait) - Psychiatric Psychiatric: appears anxious - Neurologic Neurologic: CNII-XII intact, moves all extremities (Power 4/5 in both lower extremities) - Constitutional Vitals: Vital Signs - 12hr 07/02/18 07/02/18 07/02/18 06:02 06:58 11:25 Temperature 98.8 F Pulse Rate 75 78 Respiratory 20 Rate Blood Pressure 191/104 153/99 Blood Pressure 149/98 [Left] 07/02/18 07/02/18 11:26 11:28 Temperature Pulse Rate 71 71 Respiratory Rate Blood Pressure 153/99 153/99 Blood Pressure [Left] - Labs CBC & Chem 7: 06/28/18 06:58 07/01/18 06:58
[2018-07-02] MEDS: PRAVACHOL PO SCH (22:45)
[2018-07-02] MEDS: PERCOCET 5/325 PO PRN (22:46)
[2018-07-03] MEDS: APRESOLINE IV PRN (01:18)
[2018-07-03] MEDS: APRESOLINE PO SCH ×3 (05:37→22:50)
[2018-07-03] MEDS: NORVASC PO SCH ×2 (06:40→10:33)
[2018-07-03] MEDS: COREG PO SCH ×3 (06:41→22:50)
[2018-07-03] MEDS: BABY ASPIRIN PO SCH (10:33)
[2018-07-03] MEDS: LOVENOX SUB-Q SCH (10:33)
[2018-07-03] MEDS: SODIUM CHLORIDE FLUSH SYRINGE 10 ML IV SCH ×2 (10:34→22:51)
--- NOTE | 2018-07-03 13:09 | Progress Note ---
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 Unsure about housing and doesn't give any proper history , need HH on discharge. PT following, DC planning to halfway once improve ambulation. Radiological data: MRI brain: Right craniotomy changes which demonstrate mild artifact, correlate with history. 3 small foci of subacute ischemia identified. This could indicate an embolic process, correlate with the patient's clinical presentation. Chronic cortical encephalomalacia in the frontal lobes and left temporal lobe as described. Chronic white matter changes. Chronic focal infarcts in the king radiata bilaterally. Subjective Date of service: 07/03/18 Interval history: Pt seen and examined Denies chest pain or SOB Hardly gets out of the bed, states that she is still off balance Very poor historian when asked about her living situation and d/c planning dilantin level normal today Objective - Exam Narrative Exam: General appearance: Present: no acute distress, well-nourished - EENT Eyes: Present: PERRL ENT: hearing intact, clear oral mucosa - Neck Neck: Present: supple, normal ROM - Respiratory Respiratory effort: normal Respiratory: bilateral: CTA - Cardiovascular Heart rate: 80 Rhythm: regular Heart Sounds: Present: S1 & S2. Absent: rub, click - Extremities Extremities: no ischemia, pulses intact, pulses symmetrical, No edema Peripheral Pulses: within normal limits - Abdominal General gastrointestinal: Present: soft, non-tender, non-distended, normal bowel sounds Female genitourinary: Present: normal - Rectal Rectal Exam: deferred - Integumentary Integumentary: Present: clear, warm, dry - Musculoskeletal Musculoskeletal: generalized weakness, other (Ataxic Gait) - Psychiatric Psychiatric: appears anxious - Neurologic Neurologic: CNII-XII intact, moves all extremities (Power 4/5 in both lower extremities) - Constitutional Vitals: Vital Signs - 12hr 07/03/18 07/03/18 07/03/18 01:18 02:45 05:36 Temperature 98.0 F Pulse Rate 68 72 87 Respiratory 20 Rate Blood Pressure 165/104 179/110 Blood Pressure 164/104 142/90 [Left] O2 Sat by Pulse 98 Oximetry 07/03/18 07/03/18 07/03/18 05:37 06:40 06:41 Temperature Pulse Rate 84 74 74 Respiratory Rate Blood Pressure 163/113 181/101 181/101 Blood Pressure [Left] O2 Sat by Pulse Oximetry 07/03/18 11:46 Temperature 98.0 F Pulse Rate 90 Respiratory 14 Rate Blood Pressure 151/94 Blood Pressure [Left] O2 Sat by Pulse 98 Oximetry - Labs CBC & Chem 7: 06/28/18 06:58 07/01/18 06:58
[2018-07-03] MEDS ORDERED: DILANTIN PO SCH (14:00)
[2018-07-03] MEDS: PRAVACHOL PO SCH ×2 (22:00→23:31)
[2018-07-03] MEDS: DILANTIN PO SCH (22:50)
[2018-07-04] MEDS: APRESOLINE PO SCH ×3 (05:58→22:26)
[2018-07-04] MEDS: LOVENOX SUB-Q SCH (09:46)
[2018-07-04] MEDS: NORVASC PO SCH (09:46)
[2018-07-04] MEDS: COREG PO SCH ×2 (09:46→22:26)
[2018-07-04] MEDS: DILANTIN PO SCH ×2 (09:46→22:26)
[2018-07-04] MEDS: BABY ASPIRIN PO SCH (09:46)
[2018-07-04] MEDS: SODIUM CHLORIDE FLUSH SYRINGE 10 ML IV SCH ×2 (14:33→22:27)
--- NOTE | 2018-07-04 15:30 | Discharge Summary ---
Providers - Providers Date of Admission: 06/27/18 18:12 Date of discharge: 07/04/18 Attending physician: KENYATTA PEREA 06/26/18 13:34 Consult to Case Management [CONS] Stat Services Needed at Discharge: Materials Management Supervisor Home Health Services Notified:: yes Additional Physician Instructions: Usp placement 06/27/18 18:16 Physical Therapy Evaluation and Treat [CONS] Routine Comment: Reason For Exam: severe debility 06/27/18 23:57 Consult to Physician [CONS] Routine Comment: Consulting Provider: ALEX GATICA Physician Instructions: Reason For Exam: Ataxia Primary care physician: RADAR ENGINEER Hospitalization Condition: Stable Hospital course: 58-year-old female with history of previous stroke and dysarthria with unsteady gait brought to the hospital by EMS as she was apparently found on somebody's front porch and sitting posture--disheveled and covered with feces. Patient was apparently walking home and got lost. She stated that [place] very weak and unable to walk with worsening chronic lower extremity weakness. Patient also stated that she is homeless and wants help. [facility]. Discharge diagnosis / Acute/subacute Embolic strokes cont aspirin, statin cont stroke protocol neurology following preserved EF on 2d echo, /History of seizures abnormal EEG, Started on dilantin, will reduve the dose to 100mg BID /MORRO (acute kidney injury) continue IV Fluids, Cr stable /Hyperkalemia, s/p one dose of kayexalate, resolved /HTN, uncontrolled, will further adjust medications. 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 3 small foci of subacute ischemia identified. This could indicate an embolic process, correlate with the patient's clinical presentation. Chronic cortical encephalomalacia in the frontal lobes and left temporal lobe as described. Chronic white matter changes. Chronic focal infarcts in the king radiata bilaterally. physical exam General appearance: Present: no acute distress, well-nourished - EENT Eyes: Present: PERRL ENT: hearing intact, clear oral mucosa - Neck Neck: Present: supple, normal ROM - Respiratory Respiratory effort: normal Respiratory: bilateral: CTA - Cardiovascular Heart rate: 80 Rhythm: regular Heart Sounds: Present: S1 & S2. Absent: rub, click - Extremities Extremities: no ischemia, pulses intact, pulses symmetrical, No edema Peripheral Pulses: within normal limits - Abdominal General gastrointestinal: Present: soft, non-tender, non-distended, normal bowel sounds Female genitourinary: Present: normal - Rectal Rectal Exam: deferred - Integumentary Integumentary: Present: clear, warm, dry - Musculoskeletal Musculoskeletal: generalized weakness, other (Ataxic Gait) - Psychiatric Psychiatric: appears anxious - Neurologic Neurologic: CNII-XII intact, moves all extremities (Power 4/5 in both lower extremities) Disposition: [id number]/[id number] HOME UNDER HOME [facility] Time spent for discharge: 34 minutes Core Measure Documentation - Palliative Care Palliative Care/ Comfort Measures: Not Applicable - Core Measures Any of the following diagnoses?: none Exam - Constitutional Vitals: Temp Pulse Resp BP Pulse Ox 98.5 F 78 18 146/95 98 07/04/18 05:35 07/04/18 05:35 07/04/18 05:35 07/04/18 05:35 07/04/18 05:35 Plan Activity: fall precautions Weight Bearing Status: Non-Weight Bearing Diet: low fat, low salt Follow up with: [facility] [Provider Group] - 3-5 Days CHARLI MYLES MD [Staff Physician] - 3-5 Days Prescriptions: Pravastatin [Pravachol] 80 mg PO QHS #30 tablet amLODIPine [Norvasc] 10 mg PO DAILY #30 tablet Aspirin [Aspirin BABY CHEW TAB] 81 mg PO QDAY #30 tab.chew Carvedilol [Coreg] 6.25 mg PO BID #60 tablet hydrALAZINE [Apresoline TAB] 50 mg PO Q8HR #90 tablet Phenytoin [Dilantin] 100 mg PO Q12HR #60 capsule.er
[2018-07-04 22:24] VITALS: BP 145/98
[2018-07-04] MEDS: PRAVACHOL PO SCH (22:26)
== END 2018-07-04 22:45 | disposition home health service (06) | DRG 65 ==
LOC: ED 12:08 → 3A 06-27 18:12
PROVIDERS: ADMIT Internal Medicine; ATTEND Internal Medicine
DX: I63.9 Cerebral infarction, unspecified (principal); N17.9 Acute kidney failure, unspecified; R27.0 Ataxia, unspecified; E87.5 Hyperkalemia; I10 Essential (primary) hypertension; M51.27 Other intervertebral disc displacement, lumbosacral region; E83.42 Hypomagnesemia; E11.9 Type 2 diabetes mellitus without complications; F17.200 Nicotine dependence, unspecified, uncomplicated; F41.9 Anxiety disorder, unspecified; Z59.0 Homelessness; Z79.82 Long term (current) use of aspirin; Z79.899 Other long term (current) drug therapy; Z82.49 Family history of ischemic heart disease and other diseases of the circulatory system
CPT/HCPCS: 36415; 51702; 70450; 70544; 70551; 72148; 76770; 80048; 80053; 80061; 80185; 80320; 82306; 82550; 82553; 82607; 82747; 82962; 83036; 83735; 84425; 84439; 84443; 84484; 85025; 85610; 85670; 85730; 87116; 93005; 93010; 93306; 95819; 99406; A9270-GY; G0480; J0360; J1650; J3475; J7030; J7042; Q2009